=== PATIENT | female | born 1980 | race African-American/Black ===

== ENCOUNTER → 2020-08-30 | Outpatient (CLI) | payer OTHER ==
[~2020-08-30] VITALS: Ht 172.7 cm; Wt 122.5 kg
[~2020-08-30] MED LIST: NORMAL SALINE IV ONE; SINCALIDE IV ONE
--- NOTE | 2020-08-30 11:43 | RAD ---
Complete abdominal ultrasound 08/30/2020 11:00 AM Clinical History: Reason: EPIGASTRIC ABD PAIN / Spl. Instructions: / History: Technique: Ultrasound examination of the abdomen was performed, and multiple static images were submitted for review. Comparison: None available Findings: The visualized portions of the pancreas are within normal limits. The visualized aorta and IVC are unremarkable. The gallbladder is normal in appearance without wall thickening, stones, or sludge. No pericholecystic fluid is seen. Sonographic Sanchez's sign is negative. The common bile duct measures 2 mm in diameter which is within normal limits. The liver measures 16 cm longitudinally. The liver is normal in echotexture. No intrahepatic biliary ductal dilatation is seen. No focal hepatic lesions are identified. The spleen is normal in appearance measuring 10 cm. The bilateral kidneys are normal in appearance without evidence of obstructive uropathy, nephrolithiasis, or focal renal lesion. Right kidney measures 11.3 cm in length. Left kidney measures 10.9 cm in length. Impression: Normal abdominal ultrasound Electronically signed by: Esdras Forbes MD (08/30/2020 11:40 AM) [id number]
--- NOTE | 2020-08-30 15:08 | RAD ---
INDICATION: Abdomen pain. COMPARISON: Ultrasound from same day TECHNIQUE: 5.5mCi of Tc99m Choletec was injected intravenously followed by scintigraphic images of the abdomen. 2.5 mcg of CCK was then injected and a gallbladder ejection fraction was calculated. FINDINGS: Appropriate radiotracer clearance from the blood pool. Appropriate radiotracer excretion into the biliary tree. Prompt passage of contrast into the small bowel. Visualization of the gallbladder prior to the 60 minute time point. Gallbladder ejection fraction is 89 percent. IMPRESSION: 1. No scintigraphic evidence of acute cholecystitis or high grade biliary obstruction. 2. No evidence of biliary dyskinesia. Electronically signed by: Johnie Dorado MD (08/30/2020 3:05 PM) [id number]
== END ==
LOC: US 10:55
PROVIDERS: ATTEND Internal Medicine Gastroenterology
DX: R10.13 Epigastric pain (principal)
CPT/HCPCS: 76700; 78227; A9537; J2805